=== PATIENT | female | born 1970 | race Caucasian/White ===

== ENCOUNTER → 2016-05-16 | Outpatient (CLI) | payer OTHER ==
[~2016-05-16] MED LIST: ASPIRIN EC81 MG PO; NEURONTIN 300300 MG PO; ROXICODONE TAB 55 MG PO
== END ==
LOC: US 15:00
DX: I80.9 Phlebitis and thrombophlebitis of unspecified site (principal); M79.652 Pain in left thigh; Z86.718 Personal history of other venous thrombosis and embolism
CPT/HCPCS: 93971

== ENCOUNTER → 2016-06-05 | Outpatient (CLI) | payer OTHER | LOC: MRI 05-31 10:00 | DX: G37.9 Demyelinating disease of central nervous system, unspecified (principal) | CPT/HCPCS: 70553; A9577 ==

== ENCOUNTER 2016-07-23 18:39 | Emergency (ER) | payer OTHER | END 2016-07-23 20:27 | disposition home or self-care (01) | LOC: ER1 18:39 | DX: S83.92XA Sprain of unspecified site of left knee, initial encounter (principal); E07.9 Disorder of thyroid, unspecified; F17.210 Nicotine dependence, cigarettes, uncomplicated; X50.1XXA Overexertion from prolonged static or awkward postures, initial encounter; Z91.041 Radiographic dye allergy status; Z88.1 Allergy status to other antibiotic agents; Z79.899 Other long term (current) drug therapy | CPT/HCPCS: 73564; 96372; 99283; J1100; J1885 ==

== ENCOUNTER → 2016-08-21 | Outpatient (CLI) | payer OTHER | LOC: HEART 5 07:56 | DX: I83.90 Asymptomatic varicose veins of unspecified lower extremity (principal) ==